=== PATIENT | female | born 1980 | race Hispanic/Latino ===

== ENCOUNTER 2016-11-23 13:49 | Emergency (ER) | payer OTHER ==
[2016-11-23 14:56] VITALS: BMI 27.3
[2016-11-23 15:50] LABS: BASO % 0.3 % (0.0-2.0); EOS # 0.1 K/uL (0.0-0.7); EOS % 1.5 % (0.0-4.0); HEMATOCRIT 29.6 % (34.0-47.0); LYMPH # 1.1 K/uL (1.0-4.3); LYMPH % 12.1 % (20.0-40.0); MEAN CELL VOLUME 90.8 fl (81.0-99.0); MEAN CORPUSCULAR HEMOGLOBIN 29.7 pg (27.0-31.0); MEAN CORPUSCULAR HGB CONC 32.7 g/dL (33.0-37.0); MEAN PLATELET VOLUME 8.9 fl (7.2-11.7); MONO # 0.6 K/uL (0.0-0.8); MONO % 6.6 % (0.0-10.0); NEUT # 7.2 K/uL (1.8-7.0); NEUT % 79.5 % (50.0-75.0); RED CELL DISTRIBUTION WIDTH 13.1 % (11.5-14.5)
[2016-11-23 15:52] LABS: RBC URINE 1 /hpf (0-3); URINE BACTERIA OCC (<OCC); URINE BILIRUBIN NEGATIVE (NEGATIVE); URINE COLOR YELLOW (YELLOW); URINE GLUCOSE (UA) NEG (Normal); URINE KETONE NEGATIVE (NEGATIVE); URINE LEUKOCYTE ESTERASE NEG Leu/uL (Negative); URINE PROTEIN NEGATIVE (NEGATIVE); URINE UROBILINOGEN 0.2-1.0 mg/dL (0.2-1.0); WBC URINE 1 /hpf (0-5)
[2016-11-23 15:53] LABS: URINE BLOOD NEGATIVE (NEGATIVE)
--- NOTE | 2016-11-23 15:53 | OBHP ---
Datetime: 11/23/2016 14:45 IP Adm Impression: , intrauterine ; No Active Labor; Intact Membranes IP Admit Plan: Observation/Evaluation Admit Comment, IP Provider: CC: vaginal spotting s/p wiping after urinating HPI: 36 yo at 32 wks via first US 07/24/2016; last visit was 2 weeks ago; next visit is 11/25 She shares that about an hour ago, she experienced spotting of blood after wiping post void. Denie s clots per vagina; Pastobhx: 2010 IOL M Gyne: denies STIs; pap 06/01/2016 neg pmhx: none past surg: adenoids at 8 yo soc: denies: smoking, alcohol, illicit drugs meds: pnv, Fe Allergies: none Vitals: 105/64 81 PE: General: pleasant, in no acute distress HEENT: normocephalic, PERRLA; AAOx3 Heart: no murmurs, regular rate and rhythm, S1, S2 normal. Lungs: clear to auscultation bilaterally, no wheezing Abdomen: nontender, gravid CVA: negative Lower extremities: negative for pitting edema Pelvic: No vaginal lesions; no blood per vagina; cervix closed; 3mm external hemorroid noted bedside US: vertex; placenta anterior monitor: moderate variability; accel 15x15; no decels; FHR: 140 bpm Assessment: 36 yo IUP 31.6 wks via US on 07/24/2016 observed to r/o UTI; monitor well being; assess for anemia Plan: CBC; clean catch UA/C/S Discussed with Dr. Twyla [id number] OB hospitalist addendum: Patient seen and examined by me with Dr. Jauregui. Agree with above assessment and plan with following clarification and admission. S: Patient denies vaginal spotting on her underwear only noted when she wiped. Patient denies coit us in the past month, cramps, contractions, ruptured membranes,. She reports good movement. Pat ient complains of bowel movement once every 3-4 days denies rectal bleeding. Patient complained of increased urinary frequency with voiding small amounts at each time. I: 3rd Trim Bleeding Evaluate for UTI Constipation P: u/a; cbc Pelvic Type - PN: Adequate Extremities - PN: Normal Abdomen - PN: Normal Back - PN: Normal Breast - PN: Not Done Lungs - PN: Normal Heart - PN: Normal Thyroid - PN: Not Done Neurologic - PN: Normal HEENT - PN: Normal General - PN: Normal FHR - Baseline A Provider: 140 Comments, ACOG Physical Exam: SSE: No vaginal or cervical lacerations. No blood in the vault. Rectovaginal exam: No blood on glove. Small external hemorrhoid visualized noninflamed. unofficial us: vtx; anterior plac EGA AdmitDate IP: 31.6 Vital Signs Provider: Reviewed; Within Normal Limits IP Chief Complaint: Vaginal bleeding NICHD Variability Prov Fetus A: Moderate 6-25bpm NICHD Accel Fetus A IP Provider: 15X15 FHR Category Provider Fetus A: Category I NICHD Decel Fetus A IP Provider: None Dilatation, Provider: 0 Genitourinary Exam: Normal DTRs - PN: Not Done (Annotations: Data stored by CPN on behalf of user)
[2016-11-23 21:10] VITALS: BP 95/63; PULSE 70; RESP 16; TEMP 98.4
== END 2016-11-23 16:39 | disposition home or self-care (01) ==
LOC: H.EROB2 13:49 → H.EROB 14:27 → H.EROB2 16:39
DX: O26.93 Pregnancy related conditions, unspecified, third trimester (principal); Z3A.32 32 weeks gestation of pregnancy; O47.03 False labor before 37 completed weeks of gestation, third trimester

== ENCOUNTER 2017-01-16 09:50 | Inpatient (IN) | payer OTHER ==
[2017-01-17] MEDS ORDERED: Oxytocin 30 UNITS in Sodium Chloride 0.9% 500 ML IV ONE (09:35)
[2017-01-17 10:55] LABS: BASO % 0.4 % (0.0-2.0); EOS # 0.1 K/uL (0.0-0.7); EOS % 1.3 % (0.0-4.0); HEMATOCRIT 32.1 % (34.0-47.0); LYMPH % 17.3 % (20.0-40.0); MEAN CELL VOLUME 90.2 fl (81.0-99.0); MEAN CORPUSCULAR HEMOGLOBIN 30.2 pg (27.0-31.0); MEAN CORPUSCULAR HGB CONC 33.5 g/dL (33.0-37.0); MEAN PLATELET VOLUME 9.7 fl (7.2-11.7); MONO # 0.5 K/uL (0.0-0.8); MONO % 8.7 % (0.0-10.0); NEUT # 4.3 K/uL (1.8-7.0); NEUT % 72.3 % (50.0-75.0); NRBC % 0.2 % (0.0-0.0); RED CELL DISTRIBUTION WIDTH 14.9 % (11.5-14.5)
--- NOTE | 2017-01-17 16:13 | OBADHP ---
Datetime: 01/17/2017 16:07 Admit Comment, IP Provider: term uneventful course admitted for induction Pelvic Type - PN: Adequate Extremities - PN: Normal Abdomen - PN: Normal Back - PN: Normal Breast - PN: Normal Lungs - PN: Normal Heart - PN: Normal Thyroid - PN: Normal Neurologic - PN: Normal HEENT - PN: Normal General - PN: Normal Presentation-Admit: Vertex FHR - Baseline A Provider: 130 Membranes, Provider: Intact Contraction Comments Provider: irregular Gestation - Est Wks by US: 39+ Vital Signs Provider: Reviewed IP Chief Complaint: Uterine contractions NICHD Variability Prov Fetus A: Moderate 6-25bpm NICHD Accel Fetus A IP Provider: 10X10 FHR Category Provider Fetus A: Category I NICHD Decel Fetus A IP Provider: None Dilatation, Provider: ft Effacement, Provider: 50% Station, Provider: -2 Genitourinary Exam: Normal DTRs - PN: Normal EGA AdmitDate IP: 39.5 IP Adm Impression: Term, intrauterine IP Admit Plan: Admit to unit; Initiate labor induction protocol Datetime: 11/23/2016 14:45 Comments, ACOG Physical Exam: SSE: No vaginal or cervical lacerations. No blood in the vault. Rectovaginal exam: No blood on glove. Small external hemorrhoid visualized noninflamed. unofficial us: vtx; anterior plac
[2017-01-17] MEDS ORDERED: Fentanyl/Bupivacaine HCl 250 ML EPI SCH (16:49)
[2017-01-17] MEDS ORDERED: Oxytocin 30 units/LR 500ML 30 U/500 ML BAG IV ONE (23:58)
[2017-01-18] MEDS: Lactated Ringer's 1,000 ML IV SCH ×5 (04:05→22:59)
[2017-01-18] MEDS ORDERED: Lidocaine 1% Inj (20ml) ONE (16:02)
[2017-01-18 20:07] VITALS: O2SAT 100
[2017-01-19] MEDS ORDERED: Oxycodone/Acetaminophen 5/325 mg Tab PO PRN ×4 (00:46→02:57)
--- NOTE | 2017-01-19 00:56 | OBDS ---
DELIVERY PERSONNEL Delivery Doctor: Femi Powell MD Assembly Machine Set Up Mechanic: Ariel Anesthesiologist: Dr. Benitez MATERNAL INFORMATION Delivery Anesthesia: Epidural Medications in Delivery: Pitocin 30 units in 500 mls Placenta Cultured: No Maternal Complications: None RN Comments: Dr. Tatum present at the delivery. Provider Comments: delivery of live baby boy 9/9 clear fluid cord with 3vesselsplacenta intact compound presentation right arm bilateral periurethral tears LABOR SUMMARY EDC: 01/19/2017 00:00 No. Babies in Womb: 1 Attempted: No Labor Anesthesia: Epidural LABOR INFORMATION Oxytocin: Augmentation Group B Beta Strep: Negative Antibiotics # of Doses: N/A Antibiotics Time of Last Dose: N/A Steroids Given: None Reason Steroids Not Administered: Not Applicable MEMBRANES Membranes Rupture Method: Artificial Rupture of Membranes: 01/18/2017 13:55 Length of Rupture (hrs): 10.10 Amniotic Fluid Color: Clear Amniotic Fluid Amount: Moderate Amniotic Fluid Odor: Normal STAGES OF LABOR Stage 3 hrs: 0 Stage 3 min: 7 VAGINAL DELIVERY Episiotomy: None Laceration Extension: First Degree Laceration Type: Perineal Laceration Repair: Yes Laceration Repair Note: bilateral periurethral laceration repaired with2-0 chromic also first degree prineal tear repaired Initial Vag Sponge Count: 15 Final Vag Sponge Count: 15 Initial Vag Sharps Count: ; Sponge Count Correct: Yes Sharps Count Correct: Yes Count Comment: MD confirmed count BABY A INFORMATION Delivery Date/Time: 01/19/2017 00:01 Method of Delivery: Vaginal Born in Route : No : N/A Forceps: N/A Vacuum Extraction: N/A Shoulder Dystocia : No SHOULDER DYSTOCIA BABY A Delivery Date/Time: 01/19/2017 00:01 PRESENTATION/POSITION BABY A Presentation: Compound Cephalic Presentation: Vertex Breech Presentation: N/A PLACENTA INFORMATION BABY A Placenta Delivery Time : 01/19/2017 00:08 Placenta Method of Delivery: Spontaneous Placenta Status: Delivered SCORES BABY A Heart Rate 1 min: >100 bpm Resp Effort 1 min: Good Cry Reflex Irritability 1 min: Cough or Sneeze or Pulls Away Muscle Tone 1 min: Active Motion Color 1 min: Body [place], Extremities Blue Resuscitation Effort 1 min: N/A SCORE 1 MIN: 9 Heart Rate 5 min: >100 bpm Resp Effort 5 min: Good Cry Reflex Irritability 5 min: Cough or Sneeze or Pulls Away Muscle Tone 5 min: Active Motion Color 5 min: Body [address], Extremities Blue Resuscitation Effort 5 min: N/A SCORE 5 MIN: 9 INFANT INFORMATION BABY A Gestational Age at Delivery: 40.0 Gestational Status: Term Infant Outcome : Liveborn Condition : Stable Sex: Male IDENTIFICATION/MEDS BABY A ID Band Number: [id number] ID Band Location: Left Leg; Left Arm WEIGHT/LENGTH BABY A Birthweight (gms): 3880 Infant Weight (lb): 8 Infant Weight (oz): 9 CORD INFORMATION BABY A No. Cord Vessels: 3 Nuchal Cord : N/A Nuchal Cord Other: N/A True Knot: N/A Cord pH Baby Arterial: N/A Infant Cord pH Baby Venous: N/A Cord Blood Taken: Yes Banking/Donate Info: N/A Suction: Mouth; Nose ASSESSMENT BABY A Complications: Decreased Variability; Multiple Late Decels Physical Findings at Delivery: Within Normal Limits Infant Respirations: Appears Normal [place]/ALS Called : No Care By: Dr. Tatum Transferred To: Remains with Mother
[2017-01-19 07:11] LABS: BASO % 0.3 % (0.0-2.0); EOS # 0.1 K/uL (0.0-0.7); EOS % 0.4 % (0.0-4.0); HEMATOCRIT 31.7 % (34.0-47.0); LYMPH # 1.1 K/uL (1.0-4.3); LYMPH % 8.7 % (20.0-40.0); MEAN CORPUSCULAR HEMOGLOBIN 29.2 pg (27.0-31.0); MEAN CORPUSCULAR HGB CONC 31.8 g/dL (33.0-37.0); MEAN PLATELET VOLUME 9.3 fl (7.2-11.7); NEUT # 10.2 K/uL (1.8-7.0); NEUT % 82.6 % (50.0-75.0); PLATELET COUNT 155 K/uL (130-400); RED CELL DISTRIBUTION WIDTH 15.1 % (11.5-14.5); WHITE BLOOD COUNT 12.4 K/uL (4.8-10.8)
[2017-01-19 10:52] LABS: BASOPHIL 1 % (0-2); EOSINOPHIL 1 % (0-7); LARGE PLATELETS PRESENT; NEUTROPHIL 83 % (42-75); TOTAL CELLS COUNTED 100
--- NOTE | 2017-01-20 08:03 | OBPPN ---
Datetime: 01/20/2017 08:00 PP Pain Prov: Within normal limits PP Nausea Prov: Denies PP Flatus Prov: Yes PP BM Prov: Yes PP Breasts Prov: Normal PP Heart Prov: Normal PP Lungs Prov: Normal PP Abdomen/Uterus Prov: Normal PP Lochia Prov: Normal PP Vulva/Perineum Prov: Normal PP CVA Tenderness Prov: Normal PP Extremities Prov: Normal PP Progress Prov: Normal PP Impression Prov: Normal progression PP Plan Prov: Continue present management PP Progress Note Prov: stable ppd1 continue present care IP PP Procedures: None Vital Signs Provider PP: Reviewed; Within Normal Limits
--- NOTE | 2017-01-20 08:14 | OBDCSUM ---
Datetime: 01/20/2017 08:02 Discharged to, Provider: Home Follow up at, Provider: Dr. Soriano Disch Instr Activity: Bedrest; May be up to bathroom; May be up for meals; May Shower Disch Instr Diet: Regular Discharge Instructions, Provider: Routine instructions given Discharge Diagnosis, Provider: Term Delivered Follow up in weeks, Provider: 5-6 weeks in office Disch Referrals: None Disch Activity Restrictions: No exercising; No lifting; No driving; Minimize walking; Minimize stair -climbing; No sexual activity; Nothing in vagina - [place], tampons, douche Discharge Comment, Provider: dc home today rto 5-6 weeks call office if any problems Contraception after Delivery: Undecided
[2017-01-20 20:55] VITALS: BP 114/72; PULSE 78; RESP 18; TEMP 97.7
== END 2017-01-20 16:15 | disposition home or self-care (01) | DRG 775 ==
LOC: H.L&D 01-17 08:03 → H.OB/GYN 01-19 02:15
PROVIDERS: ADMIT Specialist; ATTEND Specialist
PROC: 0HQ9XZZ Repair Perineum Skin, External Approach (ICD-10-PCS; principal; 2017-01-17)
PROC: 10E0XZZ Delivery of Products of Conception, External Approach (ICD-10-PCS; 2017-01-17)
PROC: 4A1HXCZ Monitoring of Products of Conception, Cardiac Rate, External Approach (ICD-10-PCS; 2017-01-17)
DX: O76 Abnormality in fetal heart rate and rhythm complicating labor and delivery (principal); O70.0 First degree perineal laceration during delivery; Z37.0 Single live birth; O71.82 Other specified trauma to perineum and vulva; Z3A.40 40 weeks gestation of pregnancy